=== PATIENT | female | born 1995 | race Caucasian/White ===

== ENCOUNTER 2017-06-25 16:10 | Emergency (ER) | payer MEDICAID ==
[~2017-06-25] VITALS: Ht 167.6 cm; Wt 54.0 kg
[2017-06-25 16:12] VITALS: BP 118/79; PULSE 77; RESP 16; TEMP 98.6; O2SAT 99
--- NOTE | 2017-06-25 16:17 | PD ---
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 Has a history of cysts. No vaginal discharge. Going on for a few months. Cysts growing. Vitals are stable in triage. Awaiting bed placement. Data Data Last Documented VS Vital Signs Date Time Temp Pulse Resp B/P (MAP) Pulse Ox O2 Delivery O2 Flow Rate FiO2 06/25/17 16:12 98.6 77 16 118/79 (92) 99 MDM Medical Record Reviewed: Yes Supervised Visit with JACKI: Gary Mandujano Jun 25, 2017 16:17
--- NOTE | 2017-06-25 18:34 | PD ---
HPI Chief Complaint: Abdominal Pain Time Seen by Provider: 18:33 Travel History International Travel<30 days: No Contact w/Intl Traveler<30days: No Traveled to known affect area: No History of Present Illness HPI 21 YO F presents to the ED for evaluation of "at least a month" history of vaginal pressure, dysuria, FB sensation, intermittent urinary incontinence. Patient denies fevers, chills, abdominal pain, nausea, vomiting. Last menstrual period earlier this week. Lasted 6 days which was her normal. She states that she was evaluated at outpatient clinic. She had an ultrasound that showed ovarian cysts. She had a negative urine dipstick test. She was tested for gonorrhea, chlamydia and had a wet prep which were all negative. PFSH Past Medical History ?: Not LMP: 05/2017 Social History Tobacco Use: No Allergies-Medications (Allergen,Severity, Reaction): Coded Allergies: No Known Allergies (Unverified , 06/25/17) Reported Meds & Prescriptions Reported Meds & Active Scripts Active Macrobid (Nitrofurantoin Monoh/Nitrofur Macro) 100 Mg Cap 100 Mg PO BID 7 Days Review of Systems Except as stated in HPI: all other systems reviewed are Neg Physical Exam Narrative GENERAL: Well-nourished, well-developed white female in no acute distress. SKIN: Focused skin assessment warm/dry. HEAD: Normocephalic. EYES: No scleral icterus. No injection or drainage. NECK: Supple, trachea midline. No JVD or lymphadenopathy. CARDIOVASCULAR: Regular rate and rhythm without murmurs, gallops, or rubs. RESPIRATORY: Breath sounds clear and equal bilaterally. No accessory muscle use. GASTROINTESTINAL: Abdomen soft, nondistended. Tender to palpation in the left lower quadrant and suprapubic region. No palpable masses. Active bowel sounds. GENITOURINARY: Normal external genitalia without lesions or erythema. Vaginal vault without blood or drainage. Cervical os was closed without drainage. No cervical motion tenderness. Uterus nontender and nonenlarged. Left adnexa tender without masses. MUSCULOSKELETAL: No cyanosis, or edema. BACK: Nontender without obvious deformity. No CVA tenderness. Data Data Last Documented VS Vital Signs Date Time Temp Pulse Resp B/P (MAP) Pulse Ox O2 Delivery O2 Flow Rate FiO2 06/25/17 19:59 72 20 136/82 (100) 100 Room Air 06/25/17 16:12 98.6 Orders Orders Complete Blood Count With Diff (06/25/17 16:17) Basic Metabolic Panel (Bmp) (06/25/17 16:17) Urinalysis - C+S If Indicated (06/25/17 16:17) Ed Urine Pregnancytest Poc (06/25/17 16:17) Us Pelvis Comp W Doppler (06/25/17 ) Urine Culture (06/25/17 18:30) Nitrofurantoin Monohyd Macrocr (Macrobid (06/25/17 20:15) Labs Laboratory Tests Test 06/25/17 18:30 06/25/17 18:51 Urine Color YELLOW Urine Turbidity HAZY Urine pH 6.0 Urine Specific [place] 1.031 Urine Protein 30 mg/dL Urine Glucose (UA) NEG mg/dL Urine Ketones NEG mg/dL Urine Occult Blood MOD Urine Nitrite NEG Urine Bilirubin NEG Urine Urobilinogen LESS THAN 2.0 MG/DL Urine Leukocyte Esterase MOD Urine RBC 27 /hpf Urine WBC 40 /hpf Urine Squamous Epithelial Cells 40 /hpf Urine Transitional Epithelial Cells 2 /hpf Urine Amorphous Sediment RARE Urine Bacteria MOD /hpf Urine Mucus FEW /lpf Microscopic Urinalysis Comment CULTURE INDICATED White Blood Count 8.0 TH/MM3 Red Blood Count 4.75 MIL/MM3 Hemoglobin 13.5 GM/DL Hematocrit 41.5 % Mean Corpuscular Volume 87.3 FL Mean Corpuscular Hemoglobin 28.5 PG Mean Corpuscular Hemoglobin Concent 32.6 % Red Cell Distribution Width 13.0 % Platelet Count 213 TH/MM3 Mean Platelet Volume 8.8 FL Neutrophils (%) (Auto) 50.7 % Lymphocytes (%) (Auto) 37.3 % Monocytes (%) (Auto) 7.1 % Eosinophils (%) (Auto) 4.3 % Basophils (%) (Auto) 0.6 % Neutrophils # (Auto) 4.0 TH/MM3 Lymphocytes # (Auto) 3.0 TH/MM3 Monocytes # (Auto) 0.6 TH/MM3 Eosinophils # (Auto) 0.3 TH/MM3 Basophils # (Auto) 0.0 TH/MM3 CBC Comment DIFF FINAL Differential Comment Blood Urea Nitrogen 15 MG/DL Creatinine 0.77 MG/DL Random Glucose 86 MG/DL Calcium Level 8.8 MG/DL Sodium Level 138 MEQ/L Potassium Level 3.6 MEQ/L Chloride Level 104 MEQ/L Carbon Dioxide Level 27.1 MEQ/L Anion Gap 7 MEQ/L Estimat Glomerular Filtration Rate 95 ML/MIN [facility] Medical Decision Making Medical Screen Exam Complete: Yes Emergency Medical Condition: Yes Differential Diagnosis UTI versus cystocele versus STI versus ovarian cyst versus ovarian torsion versus IUP versus ectopic versus other Narrative Course 21 YO F presents to the ED for evaluation of "at least a month" history of vaginal pressure, dysuria, FB sensation, intermittent urinary incontinence. Patient denies fevers, chills, abdominal pain, nausea, vomiting. Last menstrual period earlier this week. Lasted 6 days which was her normal. She states that she was evaluated at outpatient clinic. She had an ultrasound that showed ovarian cysts. She had a negative urine dipstick test. She was tested for gonorrhea, chlamydia and had a wet prep which were all negative. Vitals reviewed. Physical exam reveals a nontoxic-appearing white female in no acute distress. She is tender in the suprapubic region as well as the left lower quadrant. Vaginal exam reveals no evidence of cystocele. Urine test negative. No concerning abnormalities a CBC or CMP. Pelvic ultrasound reveals no ovarian cyst or any other pelvic abnormality. UA hazy, moderate occult blood , moderate leukocyte esterase, 27 RBCs, 40 wbc's, moderate bacteria. Culture pending. This is hemorrhagic cystitis. Patient was described Macrobid 100 mg twice a day 7 days. First dose administered in the ED. She is instructed to finish all antibiotics as prescribed, even if her symptoms resolve, follow up with the [place] [facility]. She indicated understanding of the instructions and is agreeable to the care plan. The patient is stable and discharged home. Diagnosis Primary Impression: Hemorrhagic cystitis Referrals: [facility] Patient Instructions: General Instructions, Urinary Tract Infection in Women ( ED) Additional Instructions: Rest, hydrate. Take all antibiotics as prescribed---even if your symptoms resolve. Follow-up with the [place] [facility] as discussed. Return to the ED for worsening symptoms or any urgent or emergent medical condition. Med/Other Pt SpecificInfo: Prescription(s) given Scripts Nitrofurantoin Monohydrate Macrocrystals (Macrobid) 100 Mg Cap 100 MG PO BID for Infection for 7 Days, CAP 0 Refills Prov: Layo Bellamy MD 06/25/17 Disposition: 01 DISCHARGE HOME Condition: Stable Maria Luz Schwartz Jun 25, 2017 18:34
--- NOTE | 2017-06-25 18:51 | RADRPT ---
EXAM DATE/TIME: 06/25/2017 17:55 [place] COMPARISON: No previous studies available for comparison. INDICATIONS : Pelvic pain. MEDICAL HISTORY : Ovarian cysts. SURGICAL HISTORY : None. ENCOUNTER: Initial ACUITY: 2 months PAIN SCORE: 3/10 LOCATION: Bilateral pelvis MEASUREMENTS: UTERUS: 7.7 x 4.8 x 3.1 cm ENDOMETRIAL STRIPE: 4 mm RIGHT OVARY: 3.7 x 2.8 x 2.2 cm LEFT OVARY: 4.2 x 2.1 x 1.5 cm FINDINGS: UTERUS: The myometrium has homogeneous echotexture without mass. RIGHT OVARY: Several small cysts/follicles measuring less than 1.2 cm are seen. Blood flow is seen. LEFT OVARY: Several small subcentimeter cysts/follicles are seen. Blood flow is seen. MISCELLANEOUS: No free fluid. CONCLUSION: Normal examination. Shawn Byrne MD on June 25, 2017 at 18:48 Board Certified Radiologist. This report was verified electronically.
[2017-06-25 19:19] LABS: BASOPHIL % 0.6 % (0.0-2.0); EOSINOPHIL # 0.3 TH/MM3 (0-0.4); EOSINOPHIL % 4.3 % (0.0-4.0); HEMATOCRIT 41.5 % (35.0-46.0); HEMO FLAGS DIFF FINAL; LYMPH % 37.3 % (9.0-44.0); MEAN CELL VOLUME 87.3 FL (80.0-100.0); MEAN CORPUSCULAR HEMOGLOBIN 28.5 PG (27.0-34.0); MEAN CORPUSCULAR HGB CONC 32.6 % (32.0-36.0); MONO % 7.1 % (0.0-8.0); NEUT % 50.7 % (16.0-70.0); PLATELET COUNT 213 TH/MM3 (150-450); RED BLOOD COUNT 4.75 MIL/MM3 (4.00-5.30)
[2017-06-25 19:25] LABS: BACTERIA, URINE MOD /hpf; BLOOD, URINE MOD (NEG); COMMENT (UR) CULTURE INDICATED; CULTURE IF INDICATED CULTURE INDICATED; GLUCOSE,URINE NEG (NEG); KETONE, URINE NEG (NEG); MUCUS URINE FEW /lpf (OCC); NITRITE,URINE NEG (NEG); SQUAMOUS EPITHELIAL CELL URINE 40 /hpf (0-5); TRANSITIONAL EPI CELLS, URINE 2 /hpf; URINE COLOR YELLOW (YELLW/STRAW)
[2017-06-25 19:35] LABS: BICARBONATE 27.1 MEQ/L (21.0-32.0); POTASSIUM 3.6 MEQ/L (3.5-5.1)
[2017-06-25 19:59] VITALS: BP 136/82; PULSE 72; RESP 20; O2SAT 100
[2017-06-25] MEDS ORDERED: MACR100C2 PO (20:05)
[2017-06-25] MEDS ORDERED: NITROFURANTOIN MONOHYD MACROCR 100 MG CAP PO ONE (20:15)
[2017-06-25 20:29] VITALS: BP 132/68
== END 2017-06-25 20:29 | disposition home or self-care (01) ==
LOC: NEPC 16:10
DX: N30.81 Other cystitis with hematuria (principal)
CPT/HCPCS: 76856; 80048; 81001; 84703; 85025; 87086; 93975; 99284